=== PATIENT | male | born 1950 | race African-American/Black ===

== ENCOUNTER 2019-06-02 11:56 | Inpatient (IN) | payer MEDICARE, MEDICAID ==
[~2019-06-02] VITALS: Ht 170.2 cm; Wt 75.3 kg
[2019-06-02] MEDS ORDERED: LEVETIRACETAM 500MG PREMIX 100 ML IV ONE (12:30)
[2019-06-02] MEDS ORDERED: LORAZEPAM 2MG/ML CPJ IV ONE (13:00)
[2019-06-02 13:02] LABS: BASOPHILS % 0.7 % (0.0-2.0); EOSINOPHILS % 5.6 % (0.0-5.0); HEMATOCRIT. 45.4 % (42.0-52.0); HEMOGLOBIN. 14.8 g/dL (14.0-18.0); LYMPHOCYTES % 25.2 % (20.0-50.0); MEAN CORPUSCULAR HEMOGLOBIN 27.1 pg (28.0-32.0); MEAN CORPUSCULAR VOLUME 83.2 fL (80.0-94.0); MEAN PLATELET VOLUME 8.3 fl (7.4-10.4); MONOCYTES % 5.8 % (2.0-8.0); NEUTROPHILS % 62.7 % (40.0-76.0); PLATELET 203 x1000/uL (130-400); RED BLOOD CELL COUNT 5.46 mill/uL (4.7-6.1); RED CELL DISTRIBUTION WIDTH 16.1 % (11.6-14.6)
[2019-06-02 13:18] LABS: CHLORIDE 104 mEq/L (98-107)
[2019-06-02 13:22] LABS: ETHANOL BLOOD 10 mg/dL
[2019-06-02 14:32] LABS: CLARITY URINE CLEAR (CLEAR); COLOR URINE YELLOW (YELLOW); KETONES URINE NEGATIVE (NEGATIVE); LEUKOCYTE ESTERASE URINE 2+ (NEGATIVE); NITRITE URINE NEGATIVE (NEGATIVE); OCCULT BLOOD URINE TRACE (NEGATIVE); PROTEIN URINE 1+ (NEGATIVE); SPECIFIC GRAVITY URINE 1.018 (1.005-1.030)
[2019-06-02] MEDS ORDERED: CEFTRIAXONE 1 G PREMIX 50 ML IV ONE (14:45)
[2019-06-02 14:47] LABS: *AMPHETAMINES SCREEN URINE NEGATIVE (NEGATIVE); *BARBITURATES SCREEN URINE NEGATIVE (NEGATIVE); *BENZODIAZEPINES SCREEN URINE NEGATIVE (NEGATIVE); *COCAINE SCREEN URINE PRESUMTIVE POSITIVE (NEGATIVE); CANNABINOID URINE SCREEN NEGATIVE (NEGATIVE); METHADONE URINE SCREEN NEGATIVE (NEGATIVE); OPIATES URINE SCREEN NEGATIVE (NEGATIVE); PHENCYCLIDINE URINE SCREEN PRESUMTIVE POSITIVE (NEGATIVE)
[2019-06-02] MEDS ORDERED: ONDANSETRON HCL 4MG/2ML INJ IV PRN (16:45)
[2019-06-02] MEDS ORDERED: NA PHOS,M-B/NA PHOS,DI-BA ENEMA 118ML PR PRN (16:45)
[2019-06-02] MEDS ORDERED: GUAIFENESIN 200MG/10ML SUGAR FREE UDC PO PRN (16:45)
[2019-06-02] MEDS ORDERED: MAGNESIUM/ALUMINUM HYDROXIDE/SIMETHICONE 30ML UDC PO PRN (16:45)
[2019-06-02] MEDS ORDERED: LORAZEPAM 2MG/ML CPJ IV PRN (16:45)
[2019-06-02] MEDS ORDERED: DOCUSATE SODIUM 100MG CAPSULE PO PRN (16:45)
[2019-06-02] MEDS ORDERED: MORPHINE SULFATE 2 MG/ML CPJ (NOT FOR IM USE) IV PRN (16:45)
[2019-06-02] MEDS ORDERED: CLONIDINE 0.1MG TABLET PO PRN (16:45)
[2019-06-02] MEDS ORDERED: DIPHENHYDRAMINE 50MG/ML VIAL IV PRN (16:45)
[2019-06-02] MEDS ORDERED: IPRATROPIUM/ALBUTEROL 0.5-3(2.5)MG/3ML NEB NEB PRN (16:45)
[2019-06-02] MEDS ORDERED: ACETAMINOPHEN 325MG TABLET PO PRN (16:45)
[2019-06-02 20:00] VITALS: BP 139/101
[2019-06-03] VITALS: BP 105/68
[2019-06-03 01:37] LABS: CHLORIDE 109 mEq/L (98-107)
[2019-06-03] MEDS: DEXT 5%/0.45% NACL 1000ML 1,000 ML IV SCH ×3 (03:11→23:14)
[2019-06-03 04:00] VITALS: BP 119/83
[2019-06-03 07:32] LABS: BASOPHILS % 0.5 % (0.0-2.0); EOSINOPHILS % 6.1 % (0.0-5.0); HEMATOCRIT. 42.9 % (42.0-52.0); HEMOGLOBIN. 14.2 g/dL (14.0-18.0); LYMPHOCYTES % 24.3 % (20.0-50.0); MEAN CORPUSCULAR HEMOGLOBIN 27.3 pg (28.0-32.0); MEAN CORPUSCULAR VOLUME 82.4 fL (80.0-94.0); MEAN PLATELET VOLUME 8.9 fl (7.4-10.4); MONOCYTES % 6.8 % (2.0-8.0); NEUTROPHILS % 62.3 % (40.0-76.0); PLATELET 208 x1000/uL (130-400); RED CELL DISTRIBUTION WIDTH 15.5 % (11.6-14.6)
[2019-06-03 07:45] LABS: CHLORIDE 109 mEq/L (98-107)
[2019-06-03 07:54] LABS: LDL CHOLESTEROL 87 mg/dL (5-100)
[2019-06-03 07:56] LABS: HDL CHOLESTEROL 53 mg/dL (40-59); T4 FREE 0.77 ng/dL (0.76-1.46)
[2019-06-03 08:00] VITALS: BP 109/72
[2019-06-03] MEDS: LEVETIRACETAM 500MG TABLET PO SCH ×2 (08:56→21:56)
[2019-06-03] MEDS: ASPIRIN 81MG EC TABLET PO SCH (08:57)
[2019-06-03 12:00] VITALS: BP 130/77
[2019-06-03 16:00] VITALS: BP 119/80
[2019-06-03 20:14] VITALS: BP 127/84
[2019-06-04 00:38] VITALS: BP 126/88
[2019-06-04 04:00] VITALS: BP 143/89
[2019-06-04 06:06] LABS: BASOPHILS % 0.3 % (0.0-2.0); EOSINOPHILS % 6.6 % (0.0-5.0); HEMOGLOBIN. 14.5 g/dL (14.0-18.0); LYMPHOCYTES % 23.7 % (20.0-50.0); MEAN CORPUSCULAR HEMOGLOBIN 27.4 pg (28.0-32.0); MEAN PLATELET VOLUME 8.7 fl (7.4-10.4); MONOCYTES % 8.1 % (2.0-8.0); NEUTROPHILS % 61.3 % (40.0-76.0); PLATELET 212 x1000/uL (130-400); RED CELL DISTRIBUTION WIDTH 15.9 % (11.6-14.6)
[2019-06-04 06:22] LABS: CHLORIDE 111 mEq/L (98-107)
[2019-06-04] MEDS: DEXT 5%/0.45% NACL 1000ML 1,000 ML IV SCH ×2 (08:40→22:13)
[2019-06-04] MEDS: ASPIRIN 81MG EC TABLET PO SCH (09:04)
[2019-06-04] MEDS: LEVETIRACETAM 500MG TABLET PO SCH ×2 (09:04→22:13)
[2019-06-04 12:00] VITALS: BP 117/76
[2019-06-04 16:00] VITALS: BP 125/72
[2019-06-04 20:00] VITALS: BP 109/70
[2019-06-05] VITALS: BP 146/75
[2019-06-05 04:00] VITALS: BP 117/81
[2019-06-05] MEDS: DEXT 5%/0.45% NACL 1000ML 1,000 ML IV SCH ×2 (06:33→14:40)
[2019-06-05 08:00] VITALS: BP_SYST 110; BP_SYST 124; BP_DIAS 60; BP_DIAS 79
[2019-06-05] MEDS: ASPIRIN 81MG EC TABLET PO SCH (08:36)
[2019-06-05] MEDS: LEVETIRACETAM 500MG TABLET PO SCH (08:36)
[2019-06-05 12:00] VITALS: BP 124/79
[2019-06-05 14:05] VITALS: BP 110/60
== END 2019-06-05 17:37 | disposition home or self-care (01) | DRG 101 ==
LOC: ER 12:04 → EDBD 16:21 → 7WST 16:21 → EDBEDREQ 16:26 → EDBEDREQTM 16:26 → ENRESERV 17:06 → 7WST 23:26
PROVIDERS: ADMIT Internal Medicine; ATTEND Internal Medicine
PROC: 4A10X4Z Monitoring of Central Nervous Electrical Activity, External Approach (ICD-10-PCS; principal; 2019-06-05)
DX: G40.901 Epilepsy, unspecified, not intractable, with status epilepticus (principal); G93.89 Other specified disorders of brain; E86.0 Dehydration; F14.10 Cocaine abuse, uncomplicated; F17.210 Nicotine dependence, cigarettes, uncomplicated; Z71.51 Drug abuse counseling and surveillance of drug abuser; I69.314 Frontal lobe and executive function deficit following cerebral infarction
CPT/HCPCS: 36415; 80048; 80053; 80061; 80305; 80320; 81003; 84439; 84443; 84484; 85025; 93005; 95816; 96365; 99291; J0696; J1953; J2060; G0480

== ENCOUNTER 2019-06-10 03:05 | Emergency (ER) | payer MEDICARE, MEDICAID ==
[~2019-06-10] VITALS: Ht 177.8 cm; Wt 100.0 kg
[2019-06-10] MEDS ORDERED: PHENYTOIN SODIUM EXTENDED 100MG CAPSULE PO ONE (04:15)
[2019-06-10] MEDS ORDERED: LORAZEPAM 2MG/ML CPJ ONE (04:45)
[2019-06-10] MEDS ORDERED: LORAZEPAM 2MG/ML CPJ IM PRN (04:45)
[2019-06-10 09:49] VITALS: BP 122/76
== END 2019-06-10 10:29 | disposition home or self-care (01) ==
LOC: ER 03:05
DX: G40.909 Epilepsy, unspecified, not intractable, without status epilepticus (principal); I10 Essential (primary) hypertension; Z91.14 Patient's other noncompliance with medication regimen
CPT/HCPCS: 82962; 96372; 99285; J2060